=== PATIENT | male | born 1965 | race Hispanic/Latino ===

== ENCOUNTER 2017-11-09 21:57 | Inpatient (IN) | payer MEDICAID, OTHER ==
--- NOTE | 2017-11-09 22:26 | ED PDOC ---
Arrival/HPI <Pawan Mendes - Last Filed: 11/10/17 00:12> - General Historian: Patient - History of Present Illness Time/Duration: Other (see hpi) Context: Home <Genesis Dalal - Last Filed: 11/10/17 01:10> - General Chief Complaint: Weakness/Neurological Deficit Time Seen by Provider: 11/09/17 22:06 - History of Present Illness Narrative History of Present Illness (Text): 11/09/17 22:26 This 52 yo male with a pmh MS, presents to this ED by BLS c/o unable to walk, since he can not move his legs. Patient stated he normally uses a cane to ambulate. He stated he was a a local bar, having some beers. He satted he tried to stand up, but he said he can not move his legs. Patient feels it is an exacerbation of MS. Patient denies recent trauma, back pain, fever, sick contact, IV drug use, or dizziness. No PMD (Genesis Dalal) Past Medical History - Provider Review Nursing Documentation Reviewed: Yes - Infectious Disease Hx of Infectious Diseases: None - Tetanus Immunization Tetanus Immunization: Unknown - Cardiac Hx Cardiac Disorders: No - Pulmonary Hx Respiratory Disorders: No - Neurological Hx Neurological Disorder: Yes Hx Multiple Sclerosis: Yes - HEENT Hx HEENT Disorder: No - Renal Hx Renal Disorder: No - Endocrine/Metabolic Hx Endocrine Disorders: No - Hematological/Oncological Hx Blood Disorders: No - Integumentary Hx Dermatological Disorder: No - Musculoskeletal/Rheumatological Hx Musculoskeletal Disorders: No - Gastrointestinal Hx Gastrointestinal Disorders: No - Genitourinary/Gynecological Hx Genitourinary Disorders: No - Psychiatric Hx Psychophysiologic Disorder: Yes Hx Anxiety: Yes Hx Panic Disorder: Yes Hx Substance Use: No - Past Surgical History Past Surgical History: No Previous - Anesthesia Hx Anesthesia: No - Suicidal Assessment Feels Threatened In Home Enviroment: No <Genesis Dalal - Last Filed: 11/10/17 01:10> Family/Social History - Physician Review Nursing Documentation Reviewed: Yes Family/Social History: Other (noncontributory) Smoking Status: Former Smoker Hx Alcohol Use: No Hx Substance Use: No Hx Substance Use Treatment: No <Genesis Dalal - Last Filed: 11/10/17 01:10> Allergies/Home Meds <CinthyaPawan - Last Filed: 11/10/17 00:12> <Genesis Dalal - Last Filed: 11/10/17 01:10> Allergies/Adverse Reactions: Allergies No Known Allergies Allergy (Verified 03/09/15 21:20) Home Medications: Home Meds Medication Instructions Recorded Confirmed Clonazepam [Clonazepam] 1 mg PO BID 03/09/15 03/09/15 Gabapentin [Neurontin] 1 tab PO BID 03/09/15 03/09/15 PARoxetine [Paxil] 1 tab PO HS 03/09/15 03/09/15 hydrOXYzine HCl [Atarax] 1 tab PO DAILY 03/09/15 03/09/15 Review of Systems - Review of Systems Systems not reviewed;Unavailable: Intoxicated (mild) Constitutional: Normal. absent: Fatigue, Weight Change, Fevers Eyes: Normal ENT: Normal Respiratory: Normal. absent: SOB, Cough Cardiovascular: Normal. absent: Chest Pain Gastrointestinal: Normal. absent: Abdominal Pain, Nausea, Vomiting Genitourinary Male: Normal Musculoskeletal: Other (see hpi) Skin: Normal Neurological: Normal Endocrine: Normal Hemo/Lymphatic: Normal Psychiatric: Normal <Genesis Dalal Froylan - Last Filed: 11/10/17 01:10> Physical Exam - Physical Exam Physical Exam Limitations: Intoxication (but patient is able to answer all questions) Temperature: Afebrile Blood Pressure: Normal Pulse: Regular Respiratory Rate: Normal Appearance: Positive for: Well-Appearing, Non-Toxic, Comfortable Pain Distress: None Mental Status: Positive for: Alert and Oriented X 3 Finger Stick Blood Glucose: 107 - Systems Exam Head: Present: Atraumatic, Normocephalic Pupils: Present: PERRL Extroacular Muscles: Present: EOMI Conjunctiva: Present: Normal Mouth: Present: Moist Mucous Membranes Neck: Present: Normal Range of Motion Respiratory/Chest: Present: Clear to Auscultation, Good Air Exchange. No: Respiratory Distress, Accessory Muscle Use Cardiovascular: Present: Regular Rate and Rhythm, Normal S1, S2. No: Murmurs Abdomen: Present: Normal Bowel Sounds. No: Tenderness, Distention, Peritoneal Signs Back: Present: Normal Inspection Upper Extremity: Present: Normal Inspection, Normal ROM, Neurovascularly Intact , Capillary Refill < 2s. No: Cyanosis, Edema Lower Extremity: Present: Normal Inspection, Swelling. No: Edema, Normal ROM, Erythema, Temperature Abnormalties Neurological: Present: GCS=15, CN II-XII Intact, Speech Normal Skin: Present: Warm, Dry, Normal Color. No: Rashes Psychiatric: Present: Alert, Oriented x 3, Normal Insight, Normal Concentration <Genesis Dalal - Last Filed: 11/10/17 01:10> Vital Signs Temp Pulse Resp BP Pulse Ox 11/10/17 00:22 74 19 132/83 99 11/09/17 22:12 97.7 F 70 18 129/84 98 Medical Decision Making <Pawan Mendes - Last Filed: 11/10/17 00:12> Re-evaluation Time: 00:58 Reassessment Condition: Re-examined, Improving,but remains with symptoms - Lab Interpretations I have reviewed the lab results: Yes Interpretation: No clinic. lab abnormalty - EKG Interpretation Interpreted by ED Physician: Yes (NSR @ [address] changes) Type: 12 lead EKG Comparison: No previous EKG avail. <Genesis Dalal - Last Filed: 11/10/17 01:10> ED Course and Treatment: 11/09/17 23:[address] Adan Neurologist, regarding patient c/o unable to move his b/l legs. She recommended Solumedrol 125 mg IVP if there is not leukocytosis. She also recommended DVT prophylaxis, and MRI of Lumbar spine with contrast tomorrow morning. To place a consult under Dr. Manuel., who will see patient tomorrow. She also noted that patient will eventually need MRI of brain, cervical and Thoracic spine. 11/10/17 01:00 Patient stated he was seen Dr. Balderrama 2 years ago, but he has not seen him since then 11/10/17 01:08 I spoke with medical secretary teacher and Dr. Ann regarding patient c/o unable to move b/l legs. I reviewed labs, cxr, pending UA, and Dr. Adan neurologist recommendation. He agrees with plan for admission. (Genesis Dalal) - Lab Interpretations Lab Results: 11/09/17 22:55 11/09/17 22:55 Lab Results 11/09/17 22:55: Alcohol, Quantitative 228 H 11/09/17 22:55: Sodium 137, Potassium 3.7, Chloride 97 L, Carbon Dioxide 27, Anion Gap 17, BUN 7, Creatinine 0.6 L, Est GFR ( Amer) > 60, Est GFR (Non -Af Amer) > 60, Random Glucose 132 H, Calcium 9.0, Total Bilirubin 0.4, AST 26, ALT 36, Alkaline Phosphatase 70, Total Protein 7.6, Albumin 4.3, Globulin 3.3, Albumin/Globulin Ratio 1.3, Lipase 177 11/09/17 22:55: WBC 3.6 L D, RBC 4.67, Hgb 14.6, Hct 41.9 L, MCV 89.7, MCH 31.3 , MCHC 34.8, RDW 12.6, Plt Count 210, MPV 10.3, Gran % 42.6 L, Lymph % (Auto) 44.1 H, [place] % (Auto) 9.3 H, Eos % (Auto) 3.7, Baso % (Auto) 0.3, Gran # 1.52, Lymph # 1.6, [place] # 0.3, Eos # 0.1, Baso # 0.01 - RAD Interpretation Narrative RAD Interpretations (Text): 11/10/17 00:35 CXR: NAD (Genesis Dalal) Radiology Orders: 11/09/17 22:28 CHEST PORTABLE [RAD] Stat - Medication Orders Current Medication Orders: Discontinued Medications Multivitamins/Vitamin C 10 ml/Thiamine HCl 100 mg/ Folic Acid 1 mg/ Sodium Chloride 1,011.2 mls @ 500 mls/hr IV .Q2H2M ONE Stop: 11/10/17 00:28 Last Admin: 11/09/17 23:27 Dose: 500 mls/hr eMAR Start Stop Document 11/09/17 23:27 CNR (Rec: 11/09/17 23:27 CNR [id number]) Intravenous Solution Start Date 11/09/17 Start Time 23:27 Methylprednisolone (Solu-Medrol) 125 mg IVP STAT STA Stop: 11/10/17 00:58 - PA / 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 DILAN has examined the patient and agrees with the treatment plan. <Pawan Mendes - Last Filed: 11/10/17 00:12> Disposition/Present on Arrival <Pawan Mendes - Last Filed: 11/10/17 00:12> - Present on Arrival Any Indicators Present on Arrival: No History of DVT/PE: No History of Uncontrolled Diabetes: No Urinary Catheter: No History of Decub. Ulcer: No History Surgical Site Infection Following: None - Disposition Have Diagnosis and Disposition been Completed?: Yes Disposition Time: 01:06 Patient Plan: Admission <Genesis Dalal - Last Filed: 11/10/17 01:10> - Disposition Diagnosis: Exacerbation of multiple sclerosis Disposition: HOSPITALIZED Condition: STABLE Referrals: Mason Grimm MD [Primary Care Provider] - Follow up with primary Forms: [employer] ([place])
[2017-11-09] MEDS ORDERED: Multivitamin (MVI) 10 ML, Thiamine 100 MG, Folic Acid 1 MG in Sodium Chloride 0.9% 1,00... IV ONE (22:27)
[2017-11-09 23:28] LABS: ALB/GLOB RATIO 1.3 (1.1-1.8); ALBUMIN 4.3 g/dL (3.0-4.8); ALT/SGPT 36 U/L (7-56); AST/SGOT 26 U/L (17-59); BLOOD UREA NITROGEN 7 mg/dL (7-21); GFR AFRICAN-AMERICAN > 60; GFR NON-AFRICAN AMERICAN > 60; LIPASE 177 U/L (23-300)
[2017-11-09 23:53] LABS: WHITE BLOOD COUNT 3.6 10^3/ul (4.5-11.0)
[2017-11-09 23:54] LABS: HEMOGLOBIN 14.6 g/dL (14.0-18.0); MEAN CELL VOLUME 89.7 fl (80.0-105.0); MEAN CORPUSCULAR HEMOGLOBIN 31.3 pg (25.0-35.0); MEAN CORPUSCULAR HGB CONC 34.8 g/dl (31.0-37.0); MEAN PLATELET VOLUME 10.3 fl (7.0-11.0); RBC 4.67 10^6/uL (3.5-6.1); RED CELL DISTRIBUTION WIDTH 12.6 % (11.5-14.5)
[2017-11-09 23:55] LABS: BASO # 0.01 K/mm3 (0.0-2.0); BASO % 0.3 % (0.0-3.0); EOS # 0.1 (0.0-0.7); EOS % 3.7 % (1.5-5.0); GRAN # 1.52 (1.4-6.5); GRAN % 42.6 % (50.0-68.0); LYMPH # 1.6 (1.2-3.4); LYMPH % 44.1 % (22.0-35.0); MONO # 0.3 (0.1-0.6); MONO % 9.3 % (1.0-6.0)
--- NOTE | 2017-11-10 00:58 | CP.PCM.HP ---
<Anthony Philippe - Last Filed: 11/10/17 01:51> History of Present Illness - History of Present Illness History of Present Illness: CC: Increased Difficulty Ambulating Subjective: HPI: Patient is a 52 year old male with past medical history of multiple sclerosis, lumbar disk herniation, and anxiety disorder who presents to the emergency department for evaluation and treatment of increased difficulty ambulating. Patients states that at his baseline he unable to ambulate without the assistance of a walker. Additionally at baseline he has to assist his legs with the use of his arms to climb stairs. After consuming the 6-8 pints of beer over the course of several hours the patient states he was experiencing increased difficulty transitioning from a sitting to standing position. Patient also admits to baseline urinary and fecal incontinence. Patient denies intractable headache, fever, chills, dizziness, blurry vision, ringing in the ears, chest pain, shortness of breath, abdominal pain, nausea, vomiting, diarrhea, constipation, and urinary symptoms. ROS: 12 point review of systems negative except as indicated in HPI PMHx: MS, lumbar disk herniation, anxiety disorder PSHx: right ankle surgery, left ankle surgery, left elbow surgery, left wrist surgery Allergies: none Family Hx: none Social Hx: social ETOH use, former tobacco user- quit 6 months ago, smoked 3/4 ppd for 30 years, denies illicit drug use Medications: Please see medication reconciliation PMD: Dr. Grimm Pharmacy: [facility] in [place], also uses a specialty pharmacy to attain MS injection treatment- he cannot recall the name at this time Physical Examination: - Constitutional Appears: Non-toxic, No Acute Distress - Head Exam Head Exam: atraumatic, normocephalic - Eye Exam Eye Exam: Normal appearance, PERRL. absent: Scleral icterus - ENT Exam ENT Exam: Mucous Membranes Moist - Neck Exam Neck exam: Normal Inspection - Respiratory Exam Respiratory Exam: Normal Breathing Pattern - Cardiovascular Exam Cardiovascular Exam: +S1, +S2. absent: Gallop, JVD - GI/Abdominal Exam GI & Abdominal Exam: Normal Bowel Sounds, absent: Distended, Guarding, Pulsatile Mass, Rebound, Rigid - Extremities Exam Extremities exam: Negative for: calf tenderness - Neurological Exam Neurological exam: Patient is awake, alert, responds to verbal stimuli, answers questions appropriately, follows commands, and Upper Extremities 5/5 muscle strength bilaterally, Lower Extremities 2/5 muscle strength bilaterally, sensation intact to touch - Psychiatric Exam Psychiatric exam: Normal Affect, Normal Mood - Skin Skin Exam: warm and dry Assessment and Plan: Patient is a 52 year old male with past medical history of multiple sclerosis, lumbar disk herniation, and anxiety disorder who presents to the emergency department for evaluation and treatment of increased difficulty ambulating. Increased Difficulty Ambulating - ETOH vs MS exacerbation - high risk fall precautions - neurology consulted Dr. Manuel- appreciate recommendations, patient given loading dose of solumedrol in ED - consider MRI spine with contrast and continued steroids pending neurology recs - PT eval and treatment MS - patient does not have medication list to confirm, will contact family to acquire - states he takes one injection every 6 months to control MS symptoms - states he takes 2 muscle relaxers daily to help control symptoms - please restart home medications once confirmed ETOH Use - alcohol level 228 - folate, thiamine, multivitamin - ciwa protocol - mag level - seizure precautions - ativan 1mg prn withdrawl sxs Anxiety Disorder - states he takes clonazepam at home- unaware of dosage - please confirm home meds and restart - ativan prn Prophylaxis - DVT ppx- subq heparin - GI ppx- famotidine Patient case discussed with and plan approved by attending physician. 11/10/17 00:57 Present on Admission - Present on Admission Any Indicators Present on Admission: No Past Patient History - Infectious Disease Hx of Infectious Diseases: None - Tetanus Immunizations Tetanus Immunization: Unknown - Past Social History Smoking Status: Former Smoker - CARDIAC Hx Cardiac Disorders: No - PULMONARY Hx Respiratory Disorders: No - NEUROLOGICAL Hx Neurological Disorder: Yes Hx Multiple Sclerosis: Yes - HEENT Hx HEENT Problems: No - RENAL Hx Chronic Kidney Disease: No - ENDOCRINE/METABOLIC Hx Endocrine Disorders: No - HEMATOLOGICAL/ONCOLOGICAL Hx Blood Disorders: No - INTEGUMENTARY Hx Dermatological Problems: No - MUSCULOSKELETAL/RHEUMATOLOGICAL Hx Musculoskeletal Disorders: No - GASTROINTESTINAL Hx Gastrointestinal Disorders: No - GENITOURINARY/GYNECOLOGICAL Hx Genitourinary Disorders: No - PSYCHIATRIC Hx Psychophysiologic Disorder: Yes Hx Anxiety: Yes Hx Panic Symptoms: Yes Hx Substance Use: No - ANESTHESIA Hx Anesthesia: No Meds Allergies/Adverse Reactions: Allergies Allergy/AdvReac Type Severity Reaction Status Date / Time No Known Allergies Allergy Verified 03/09/15 21:20 Results - Vital Signs Recent Vital Signs: Last Vital Signs Temp 97.7 F 11/09/17 22:12 Pulse 74 11/10/17 00:22 Resp 19 11/10/17 00:22 BP 132/83 11/10/17 00:22 Pulse Ox 99 11/10/17 00:22 - Labs Result Diagrams: 11/09/17 22:55 11/09/17 22:55 Labs: Laboratory Results - last 24 hr 11/09/17 11/09/17 11/09/17 22:55 22:55 22:55 WBC 3.6 L D RBC 4.67 Hgb 14.6 Hct 41.9 L MCV 89.7 MCH 31.3 MCHC 34.8 RDW 12.6 Plt Count 210 MPV 10.3 Gran % 42.6 L Lymph % (Auto) 44.1 H [place] % (Auto) 9.3 H Eos % (Auto) 3.7 Baso % (Auto) 0.3 Gran # 1.52 Lymph # 1.6 [place] # 0.3 Eos # 0.1 Baso # 0.01 Sodium 137 Potassium 3.7 Chloride 97 L Carbon Dioxide 27 Anion Gap 17 BUN 7 Creatinine 0.6 L Est GFR ( Amer) > 60 Est GFR (Non-Af Amer) > 60 Random Glucose 132 H Calcium 9.0 Total Bilirubin 0.4 AST 26 ALT 36 Alkaline Phosphatase 70 Total Protein 7.6 Albumin 4.3 Globulin 3.3 Albumin/Globulin Ratio 1.3 Lipase 177 Alcohol, Quantitative 228 H <Nehemiah Ann - Last Filed: 11/10/17 04:51> Results - Vital Signs Recent Vital Signs: Last Vital Signs Temp 97.7 F 11/09/17 22:12 Pulse 78 11/10/17 02:37 Resp 11/10/17 02:37 BP 113/66 11/10/17 02:37 Pulse Ox 97 11/10/17 02:37 - Labs Result Diagrams: 11/09/17 22:55 11/09/17 22:55 Labs: Laboratory Results - last 24 hr 11/10/17 01:35 Urine Color Yellow Urine Appearance Clear Urine pH 6.0 Ur Specific [place] <= 1.005 Urine Protein Negative Urine Glucose (UA) Negative Urine Ketones Negative Urine Blood Negative Urine Nitrate Negative Urine Bilirubin Negative Urine Urobilinogen 0.2 Ur Leukocyte Esterase Negative Attending/Attestation - Attestation I have personally seen and examined this patient.: Yes I have fully participated in the care of the patient.: Yes I have reviewed all pertinent clinical information: Yes Notes (Text): 11/10/17 04:50 Patient was seen when he was in bed # 8 in the ER. Agree with history , physical examination, assessment and plan. Gives history of tonsillectomy, right shoulder rotator cuff repair, smoking, panic disorder.
[2017-11-10 01:58] LABS: URINE BILIRUBIN NEGATIVE (NEGATIVE); URINE BLOOD NEGATIVE (NEGATIVE); URINE GLUCOSE (UA) NEGATIVE (NEGATIVE); URINE LEUKOCYTE ESTERASE NEGATIVE Leu/uL (NEGATIVE); URINE NITRATE NEGATIVE (NEGATIVE); URINE PROTEIN NEGATIVE mg/dL (<30 mg/dL); URINE UROBILINOGEN 0.2 E.U./dL (<1 E.U./dL)
[2017-11-10 02:01] LABS: URINE APPEARANCE CLEAR (CLEAR); URINE COLOR YELLOW (YELLOW)
[2017-11-10 05:56] LABS: EOS % 0.3 % (1.5-5.0); GRAN # 2.47 (1.4-6.5); GRAN % 81.3 % (50.0-68.0); HEMOGLOBIN 15.3 g/dL (14.0-18.0); LYMPH # 0.5 (1.2-3.4); LYMPH % 17.1 % (22.0-35.0); MEAN CELL VOLUME 89.3 fl (80.0-105.0); MEAN CORPUSCULAR HGB CONC 34.7 g/dl (31.0-37.0); MEAN PLATELET VOLUME 10.5 fl (7.0-11.0); MONO % 1.3 % (1.0-6.0); RBC 4.94 10^6/uL (3.5-6.1); RED CELL DISTRIBUTION WIDTH 12.7 % (11.5-14.5)
[2017-11-10 06:42] LABS: ALB/GLOB RATIO 1.2 (1.1-1.8); ALBUMIN 4.5 g/dL (3.0-4.8); ALT/SGPT 38 U/L (7-56); AST/SGOT 24 U/L (17-59); BLOOD UREA NITROGEN 6 mg/dL (7-21); CALCIUM 9.6 mg/dL (8.4-10.5); GFR AFRICAN-AMERICAN > 60; GFR NON-AFRICAN AMERICAN > 60
[2017-11-10] MEDS: Multivitamin Therapeutic Tab PO SCH (09:04)
--- NOTE | 2017-11-10 09:05 | RAD ---
HISTORY: admission COMPARISON: No prior. FINDINGS: LUNGS: The lungs are well inflated and clear. PLEURA: No significant pleural effusion identified, no pneumothorax apparent. CARDIOVASCULAR: Normal. OSSEOUS STRUCTURES: No significant abnormalities. VISUALIZED UPPER ABDOMEN: Normal. OTHER FINDINGS: None. IMPRESSION: No active pulmonary disease.
[2017-11-10] MEDS ORDERED: methylPREDNISolone 1 GM in Sodium Chloride 0.9% 250 ML IV SCH (10:00)
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
--- NOTE | 2017-11-10 12:21 | CT ---
PROCEDURE: CT Lumbar Spine without contrast HISTORY: ms COMPARISON: None. TECHNIQUE: Axial computed tomography images were obtained of the lumbar spine without the use of intravenous contrast. Coronal and sagittal reformatted images were created and reviewed. Radiation dose: Total exam DLP = 1089 mGy-cm. This CT exam was performed using one or more of the following dose reduction techniques: Automated exposure control, adjustment of the mA and/or kV according to patient size, and/or use of iterative reconstruction technique. FINDINGS: VERTEBRAE: Unremarkable. No fracture. Normal alignment. DISCS/SPINAL CANAL/NEURAL FORAMINA: L1-2: Unremarkable. L2-3: Unremarkable. L3-4: Unremarkable. L4-5: Unremarkable. L5-S1: Unremarkable. PARASPINAL SOFT TISSUES: Unremarkable. OTHER FINDINGS: None. IMPRESSION: Unremarkable CT of Lumbar Spine.
--- NOTE | 2017-11-10 12:32 | CT ---
PROCEDURE: CT Thoracic Spine without contrast HISTORY: ms COMPARISON: None. TECHNIQUE: Axial computed tomography images were obtained of the thoracic spine without intravenous contrast. Coronal and sagittal reformatted images were created and reviewed. Radiation dose: Total exam DLP = 1119 mGy-cm. This CT exam was performed using one or more of the following dose reduction techniques: Automated exposure control, adjustment of the mA and/or kV according to patient size, and/or use of iterative reconstruction technique. FINDINGS: VERTEBRAE: Unremarkable. No fracture. Normal alignment. DISCS/SPINAL CANAL/NEURAL FORAMINA: Within the limits of the CT technique, no disc herniation seen. No central canal or neural foraminal stenosis.. PARASPINAL SOFT TISSUES: Unremarkable. OTHER FINDINGS: Degenerative changes are seen at the base of the ribs bilaterally at T10. CT is not sensitive to the detection of demyelinating disease in the cord. MRI would be more appropriate IMPRESSION: Unremarkable CT of the thoracic spine.
[2017-11-10 14:07] VITALS: BMI 30.5
[2017-11-10] MEDS ORDERED: Influenza Vaccine 60 mcg/0.5 mL SYR (4YR UP) IM ONE (14:08)
[2017-11-10] MEDS ORDERED: Pneumococcal 23-Valent Vaccine IM ONE (14:08)
--- NOTE | 2017-11-10 16:47 | CARD ---
APPROVED REPORT EKG Measurement Heart [id number] <Conclusion> Normal sinus rhythm Normal ECG
[2017-11-11 07:50] LABS: BASO # 0.01 K/mm3 (0.0-2.0); BASO % 0.2 % (0.0-3.0); EOS % 0.8 % (1.5-5.0); GRAN # 2.23 (1.4-6.5); HEMOGLOBIN 14.3 g/dL (14.0-18.0); LYMPH % 39.5 % (22.0-35.0); MEAN CELL VOLUME 90.1 fl (80.0-105.0); MEAN CORPUSCULAR HEMOGLOBIN 31.4 pg (25.0-35.0); MEAN CORPUSCULAR HGB CONC 34.9 g/dl (31.0-37.0); MEAN PLATELET VOLUME 10.3 fl (7.0-11.0); MONO # 0.7 (0.1-0.6); MONO % 14.5 % (1.0-6.0); RBC 4.55 10^6/uL (3.5-6.1); RED CELL DISTRIBUTION WIDTH 12.6 % (11.5-14.5)
[2017-11-11 08:22] LABS: ALB/GLOB RATIO 1.2 (1.1-1.8); ALT/SGPT 32 U/L (7-56); AST/SGOT 22 U/L (17-59); BLOOD UREA NITROGEN 12 mg/dL (7-21); CALCIUM 9.5 mg/dL (8.4-10.5); GFR AFRICAN-AMERICAN > 60; GFR NON-AFRICAN AMERICAN > 60
--- NOTE | 2017-11-11 09:13 | CP.PCM.PN ---
<Kylah Jha - Last Filed: 11/11/17 09:09> Subjective - Date & Time of Evaluation Date of Evaluation: 11/11/17 Time of Evaluation: 09:10 - Subjective Subjective: Neurology PGY2 for Dr. Briggs Pt states that no more leg cramps and stiffness in legs has improved. Last bowel movement was Friday. Denies fever and chills. No other acute complaints Objective - Vital Signs/Intake and Output Vital Signs (last 24 hours): Temp Pulse Resp BP Pulse Ox 97.8 F 73 18 122/91 H 97 11/11/17 06:00 11/11/17 06:00 11/11/17 06:00 11/11/17 06:00 11/11/17 06:00 Intake and Output: 11/11/17 11/11/17 06:59 18:59 Intake Total 120 Balance 120 - Medications Medications: Current Medications Baclofen (Lioresal) 30 mg PO HS [facility] Last Admin: 11/10/17 23:35 Dose: 30 mg Baclofen (Lioresal) 20 mg PO BID PRN PRN Reason: Muscle spasm Clonazepam (Klonopin) 1 mg PO BID PRN PRN Reason: Anxiety Last Admin: 11/10/17 21:47 Dose: 1 mg Famotidine (Pepcid) 40 mg PO HS [facility] Last Admin: 11/10/17 21:47 Dose: 40 mg Folic Acid (Folic Acid) 1 mg PO DAILY [facility] Last Admin: 11/10/17 09:05 Dose: 1 mg Gabapentin (Neurontin) 300 mg PO BID [facility] PRN Reason: Protocol Last Admin: 11/10/17 17:33 Dose: 300 mg Heparin Sodium (Porcine) (Heparin) 5,000 units SC Q8 [facility] PRN Reason: Protocol Last Admin: 11/11/17 05:25 Dose: 5,000 units Lorazepam (Ativan) 1 mg IVP Q6H PRN; Protocol PRN Reason: Symptoms of alcohol withdrawl Last Admin: 11/10/17 17:31 Dose: 1 mg Multivitamins (Thera Tab) 1 tab PO 0800 [facility] Last Admin: 11/10/17 09:04 Dose: 1 tab Paroxetine HCl (Paxil) 40 mg PO HS [facility] Last Admin: 11/10/17 21:46 Dose: 40 mg Thiamine HCl (Vitamin B1 Tab) 100 mg PO DAILY [facility] Last Admin: 11/10/17 09:04 Dose: 100 mg - Labs Labs: 11/11/17 07:00 11/11/17 07:00 - Constitutional Appears: No Acute Distress - Head Exam Head Exam: ATRAUMATIC, NORMAL INSPECTION, NORMOCEPHALIC - Eye Exam Eye Exam: EOMI, Normal appearance, PERRL. absent: Scleral icterus Pupil Exam: NORMAL ACCOMODATION - ENT Exam ENT Exam: Mucous Membranes Moist Additional comments: supple - Neck Exam Additional comments: supple - Respiratory Exam Respiratory Exam: Clear to Ausculation Bilateral, NORMAL BREATHING PATTERN. absent: Rales, Rhonchi, Wheezes - Cardiovascular Exam Cardiovascular Exam: REGULAR RHYTHM, +S1, +S2. absent: Murmur - GI/Abdominal Exam GI & Abdominal Exam: Soft, Normal Bowel Sounds. absent: Tenderness - Extremities Exam Extremities Exam: Normal Capillary Refill. absent: Calf Tenderness, Pedal Edema Additional comments: On SCDs - Neurological Exam Neurological Exam: Alert, Awake, CN II-XII Intact, Oriented x3 Neuro motor strength exam: Left Upper Extremity: 5, Right Upper Extremity: 5, Left Lower Extremity: 5, Right Lower Extremity: 5 Additional comments: Speech - fluent Sensory - grossly intact all 4 extremities Motor - 5/5 all extremities. stiffness improves Reflex - hyperreflexia on b/l LE Rapid alternative movement: [id number] intact - Psychiatric Exam Psychiatric exam: Normal Affect, Normal Mood - Skin Skin Exam: Dry, Warm Assessment and Plan - Assessment and Plan (Free Text) Plan: Mr Hernandez, 52M, with PMH of multiple sclerosis (used to be on weekly AVONEX ( interferon beta-1a) but started OCREVUS (ocrelizumab)q6mo 2 months ago), lumbar disk herniation, and anxiety disorder who presents to the emergency department for evaluation and treatment of increased difficulty ambulating. His R knee was "locked" with occasional leg spasm and leg tremor. Progressive type MS, flair - s/p 1 dose Methylprednisolone 125mg x 1 - Pending MRI w/wo gadolium - brain, C/T spine to compare MS plaques - Continue current MS medication, Ocrevus q6 months - Pt is immunocompromise due to ocrevus therapy. WBC 5. - Baclofen 30 HS for spasm. Baclofen 20 BID as needed during the day - Gabapentin 300 PO BID for neuropathy - Clonazepam 1mg BID for anxiety - recommend Subacute rehab s/r/d/w Dr. Briggs <Levon Briggs - Last Filed: 11/11/17 09:50> Objective - Vital Signs/Intake and Output Vital Signs (last 24 hours): Temp Pulse Resp BP Pulse Ox 97.8 F 73 18 122/91 H 97 11/11/17 06:00 11/11/17 06:00 11/11/17 06:00 11/11/17 06:00 11/11/17 06:00 Intake and Output: 11/11/17 11/11/17 06:59 18:59 Intake Total 120 Balance 120 - Medications Medications: Current Medications Baclofen (Lioresal) 30 mg PO HS [facility] Last Admin: 11/10/17 23:35 Dose: 30 mg Baclofen (Lioresal) 20 mg PO BID PRN PRN Reason: Muscle spasm Clonazepam (Klonopin) 1 mg PO BID PRN PRN Reason: Anxiety Last Admin: 11/10/17 21:47 Dose: 1 mg Famotidine (Pepcid) 40 mg PO HS [facility] Last Admin: 11/10/17 21:47 Dose: 40 mg Folic Acid (Folic Acid) 1 mg PO DAILY [facility] Last Admin: 11/10/17 09:05 Dose: 1 mg Gabapentin (Neurontin) 300 mg PO BID [facility] PRN Reason: Protocol Last Admin: 11/10/17 17:33 Dose: 300 mg Heparin Sodium (Porcine) (Heparin) 5,000 units SC Q8 [facility] PRN Reason: Protocol Last Admin: 11/11/17 05:25 Dose: 5,000 units Lorazepam (Ativan) 1 mg IVP Q6H PRN; Protocol PRN Reason: Symptoms of alcohol withdrawl Last Admin: 11/10/17 17:31 Dose: 1 mg Multivitamins (Thera Tab) 1 tab PO 0800 [facility] Last Admin: 11/10/17 09:04 Dose: 1 tab Paroxetine HCl (Paxil) 40 mg PO HS [facility] Last Admin: 11/10/17 21:46 Dose: 40 mg Thiamine HCl (Vitamin B1 Tab) 100 mg PO DAILY [facility] Last Admin: 11/10/17 09:04 Dose: 100 mg - Labs Labs: 11/11/17 07:00 11/11/17 07:00 Attending/Attestation - Attestation I have personally seen and examined this patient.: Yes I have fully participated in the care of the patient.: Yes I have reviewed all pertinent clinical information, including history, physical exam and plan: Yes
[2017-11-11] MEDS: Multivitamin Therapeutic Tab PO SCH (10:56)
--- NOTE | 2017-11-11 14:01 | MRI ---
PROCEDURE: MR THORACIC SPINE WITHOUT CONTRAST HISTORY: MS plaques or structure abn COMPARISON: None available. TECHNIQUE: Multiecho multiplanar sequences were performed through the thoracic spine without the use of intravenous contrast. FINDINGS: ALIGNMENT: Normal thoracic spinal alignment. Normal thoracic kyphosis. VERTEBRA: Vertebral body height are preserved. MARROW: Marrow signal unremarkable. PARASPINAL SOFT TISSUES: Unremarkable. CORD: Cord lesions are seen at the T5 and T12 levels on series 8, image 8. Lesions are difficult to see on other pulse sequences. Findings are consistent with demyelinating disease. There is also a lesion in the cord at the T3 level. DISCS: No disc herniation, spinal canal stenosis, or neuroforaminal narrowing. OTHER FINDINGS: None. IMPRESSION: Cord lesions at T3, T5 and T12 consistent with demyelinating disease.
--- NOTE | 2017-11-11 18:41 | CP.PCM.PN ---
<Abdulaziz Cooper - Last Filed: 11/11/17 18:37> Subjective - Date & Time of Evaluation Date of Evaluation: 11/11/17 Time of Evaluation: 07:30 - Subjective Subjective: Abdulaziz Cooper DO PGY1 - Internal Medicine Progres Note Patient seen and examined at bedside. No events reported overnight. Today, patient reports some improvement in muscle cramps and leg rigidity. He denies any new focal weakness, numbness. He denies urinary or bowel incontinence. Remainder of 12 point ROS negative. Objective - Vital Signs/Intake and Output Vital Signs (last 24 hours): Temp Pulse Resp BP Pulse Ox 97.8 F 73 18 122/91 H 97 11/11/17 06:00 11/11/17 06:00 11/11/17 06:00 11/11/17 06:00 11/11/17 06:00 Intake and Output: 11/11/17 11/11/17 06:59 18:59 Intake Total 120 420 Output Total 200 Balance 120 220 - Medications Medications: Current Medications Baclofen (Lioresal) 30 mg PO [facility] Last Admin: 11/10/17 23:35 Dose: 30 mg Baclofen (Lioresal) 20 mg PO BID PRN PRN Reason: Muscle spasm Clonazepam (Klonopin) 1 mg PO BID [facility] Last Admin: 11/11/17 17:19 Dose: 1 mg Famotidine (Pepcid) 40 mg PO [facility] Last Admin: 11/10/17 21:47 Dose: 40 mg Folic Acid (Folic Acid) 1 mg PO DAILY [facility] Last Admin: 11/11/17 10:55 Dose: 1 mg Gabapentin (Neurontin) 300 mg PO BID [facility] PRN Reason: Protocol Last Admin: 11/11/17 17:19 Dose: 300 mg Heparin Sodium (Porcine) (Heparin) 5,000 units SC Q8 [facility] PRN Reason: Protocol Last Admin: 11/11/17 14:53 Dose: 5,000 units Lorazepam (Ativan) 1 mg IVP Q6H PRN; Protocol PRN Reason: Symptoms of alcohol withdrawl Last Admin: 11/10/17 17:31 Dose: 1 mg Multivitamins (Thera Tab) 1 tab PO 0800 [facility] Last Admin: 11/11/17 10:56 Dose: 1 tab Paroxetine HCl (Paxil) 40 mg PO [facility] Last Admin: 11/10/17 21:46 Dose: 40 mg Thiamine HCl (Vitamin B1 Tab) 100 mg PO DAILY [facility] Last Admin: 11/11/17 10:55 Dose: 100 mg - Labs Labs: 11/11/17 07:00 11/11/17 07:00 - Constitutional Appears: Non-toxic, No Acute Distress - Head Exam Head Exam: ATRAUMATIC, NORMOCEPHALIC - Eye Exam Eye Exam: EOMI, Normal appearance, PERRL - ENT Exam ENT Exam: Mucous Membranes Moist - Respiratory Exam Respiratory Exam: Clear to Ausculation Bilateral, NORMAL BREATHING PATTERN - Cardiovascular Exam Cardiovascular Exam: REGULAR RHYTHM, +S1, +S2 - GI/Abdominal Exam GI & Abdominal Exam: Soft, Normal Bowel Sounds. absent: Tenderness - Extremities Exam Extremities Exam: absent: Calf Tenderness, Pedal Edema Additional comments: ROM in b/l LE improved since yesterday. Decreased spasticity - Neurological Exam Neurological Exam: Alert, Awake, Oriented x3 - Psychiatric Exam Psychiatric exam: Normal Affect, Normal Mood - Skin Skin Exam: Dry, Intact, Normal Color Assessment and Plan - Assessment and Plan (Free Text) Assessment: 52 year old male with past medical history of multiple sclerosis, lumbar disk herniation, and anxiety disorder who presents to the emergency department for evaluation and treatment of increased difficulty ambulating. Increased Difficulty Ambulating - Likely 2/2 Progressive MS vs MS flare; less likely 2/2 alcohol ingestion/ intoxication - Significant leg spasticity noted yesterday, improved today with initial conservative treatment - MRI brain/C spine/T spine ordered to r/o MS flare, pending - If imaging shows signs of acute flare, will treat with high dose IV steroids - high risk fall precautions - neurology consulted Dr. Briggs, who is familiar with the patient on ambulatory basis - PT eval and treatment MS - Patient takes Ocrevus every six months - Patient takes baclofen and flexeril at home; started baclofen 30mg HS for spasm - Gabapentin 300 PO BID ETOH Use - alcohol level 228 on admission - continue folate, thiamine, multivitamin - ciwa protocol; scores have been low since admission - ativan 1mg prn withdrawl sxs; patient required only one dose since admission Anxiety Disorder - Continue home clonazepam - ativan prn as above Prophylaxis - DVT ppx- subq heparin - GI ppx- famotidine Patient seen, discussed, and reviewed with attending <Dimitris Jarquin - Last Filed: 11/12/17 16:38> Objective - Vital Signs/Intake and Output Vital Signs (last 24 hours): Temp Pulse Resp BP Pulse Ox 98.4 F 70 20 141/85 95 11/12/17 05:58 11/12/17 05:58 11/12/17 05:58 11/12/17 05:58 11/12/17 05:58 Intake and Output: 11/12/17 11/12/17 06:59 18:59 Intake Total 240 Output Total 900 Balance -660 - Medications Medications: Current Medications Baclofen (Lioresal) 30 mg PO HS [facility] Last Admin: 11/11/17 21:28 Dose: 30 mg Baclofen (Lioresal) 20 mg PO BID PRN PRN Reason: Muscle spasm Cholecalciferol (Vitamin D) 2,000 intlu PO BID [facility] Clonazepam (Klonopin) 1 mg PO BID [facility] Last Admin: 11/12/17 09:48 Dose: 1 mg Famotidine (Pepcid) 40 mg PO HS [facility] Last Admin: 11/11/17 21:29 Dose: 40 mg Folic Acid (Folic Acid) 1 mg PO DAILY [facility] Last Admin: 11/12/17 09:48 Dose: 1 mg Gabapentin (Neurontin) 300 mg PO BID [facility] PRN Reason: Protocol Last Admin: 11/12/17 09:48 Dose: 300 mg Heparin Sodium (Porcine) (Heparin) 5,000 units SC Q8 [facility] PRN Reason: Protocol Last Admin: 11/12/17 14:28 Dose: 5,000 units Lorazepam (Ativan) 1 mg IVP Q6H PRN; Protocol PRN Reason: Symptoms of alcohol withdrawl Last Admin: 11/12/17 14:26 Dose: 1 mg Multivitamins (Thera Tab) 1 tab PO 0800 [facility] Last Admin: 11/12/17 09:48 Dose: 1 tab Non-Formulary Medication (Alpha Lipoic Acid) 600 mg PO BID [facility] Paroxetine HCl (Paxil) 40 mg PO HS [facility] Last Admin: 11/11/17 21:29 Dose: 40 mg Thiamine HCl (Vitamin B1 Tab) 100 mg PO DAILY [facility] Last Admin: 11/12/17 09:48 Dose: 100 mg - Labs Labs: 11/12/17 06:00 11/12/17 06:00 Attending/Attestation - Attestation I have personally seen and examined this patient.: Yes I have fully participated in the care of the patient.: Yes I have reviewed all pertinent clinical information, including history, physical exam and plan: Yes Notes (Text): 11/12/17 16:34 Attending note ; Patient seen and examined with resident . Patient is a 52 year old male with past medical history of multiple sclerosis, lumbar disk herniation, and anxiety disorder who presents to the emergency department for evaluation and treatment of increased difficulty ambulating. Patient has significant spasticity of both lower extremities. Lumbar and thoracic CT is negative. MRI of the brain/cervical spine/thoracic spine and lumbar spine ordered. Neurology evaluation appreciated. Physical therapy evaluation requested. Possible discharge home with services versus subacute rehabilitation. Case discussed with manager rn case in detail. Upon discharge the patient will follow up with PMD Dr. Grimm. Patient has progressive MS. Getting treated with Ocrevus as outpatient. Needs close follow-up with neurology. Needs outpatient physical therapy. The diagnosis and follow-up plan discussed with patient in detail. 11/12/17 16:37 11/12/17 16:37
[2017-11-12 00:06] VITALS: RESP 20; O2SAT 95
[2017-11-12 06:46] LABS: BASO # 0.02 K/mm3 (0.0-2.0); BASO % 0.4 % (0.0-3.0); EOS # 0.1 (0.0-0.7); EOS % 2.6 % (1.5-5.0); GRAN # 2.18 (1.4-6.5); GRAN % 44.3 % (50.0-68.0); HEMOGLOBIN 14.9 g/dL (14.0-18.0); LYMPH # 2.1 (1.2-3.4); LYMPH % 42.6 % (22.0-35.0); MEAN CELL VOLUME 90.4 fl (80.0-105.0); MEAN CORPUSCULAR HEMOGLOBIN 31.2 pg (25.0-35.0); MEAN CORPUSCULAR HGB CONC 34.5 g/dl (31.0-37.0); MEAN PLATELET VOLUME 10.7 fl (7.0-11.0); MONO # 0.5 (0.1-0.6); MONO % 10.1 % (1.0-6.0); RBC 4.78 10^6/uL (3.5-6.1); RED CELL DISTRIBUTION WIDTH 12.6 % (11.5-14.5); WHITE BLOOD COUNT 4.9 10^3/ul (4.5-11.0)
[2017-11-12 07:05] LABS: ALB/GLOB RATIO 1.2 (1.1-1.8); ALT/SGPT 40 U/L (7-56); AST/SGOT 25 U/L (17-59); BLOOD UREA NITROGEN 11 mg/dL (7-21); CALCIUM 9.6 mg/dL (8.4-10.5); GFR AFRICAN-AMERICAN > 60; GFR NON-AFRICAN AMERICAN > 60
[2017-11-12] MEDS: Multivitamin Therapeutic Tab PO SCH (09:48)
[2017-11-12] MEDS ORDERED: Gadodiamide 287 MG/ML VIAL (20ML) IV ONE (15:21)
--- NOTE | 2017-11-12 16:21 | CP.PCM.PN ---
<Kylah Jha - Last Filed: 11/12/17 17:29> Subjective - Date & Time of Evaluation Date of Evaluation: 11/12/17 Time of Evaluation: 09:00 - Subjective Subjective: Neurology PGY-[address] Briggs Pt states that spasm is gone and able to move knee more freely. Objective - Vital Signs/Intake and Output Vital Signs (last 24 hours): Temp Pulse Resp BP Pulse Ox 98.4 F 70 20 141/85 95 11/12/17 05:58 11/12/17 05:58 11/12/17 05:58 11/12/17 05:58 11/12/17 05:58 Intake and Output: 11/12/17 11/12/17 06:59 18:59 Intake Total 240 Output Total 900 Balance -660 - Medications Medications: Current Medications Baclofen (Lioresal) 30 mg PO HS [facility] Last Admin: 11/11/17 21:28 Dose: 30 mg Baclofen (Lioresal) 20 mg PO BID PRN PRN Reason: Muscle spasm Cholecalciferol (Vitamin D) 2,000 intlu PO BID [facility] Clonazepam (Klonopin) 1 mg PO BID [facility] Last Admin: 11/12/17 09:48 Dose: 1 mg Famotidine (Pepcid) 40 mg PO HS [facility] Last Admin: 11/11/17 21:29 Dose: 40 mg Folic Acid (Folic Acid) 1 mg PO DAILY [facility] Last Admin: 11/12/17 09:48 Dose: 1 mg Gabapentin (Neurontin) 300 mg PO BID [facility] PRN Reason: Protocol Last Admin: 11/12/17 09:48 Dose: 300 mg Heparin Sodium (Porcine) (Heparin) 5,000 units SC Q8 [facility] PRN Reason: Protocol Last Admin: 11/12/17 14:28 Dose: 5,000 units Lorazepam (Ativan) 1 mg IVP Q6H PRN; Protocol PRN Reason: Symptoms of alcohol withdrawl Last Admin: 11/12/17 14:26 Dose: 1 mg Multivitamins (Thera Tab) 1 tab PO 0800 [facility] Last Admin: 11/12/17 09:48 Dose: 1 tab Non-Formulary Medication (Alpha Lipoic Acid) 600 mg PO BID [facility] Paroxetine HCl (Paxil) 40 mg PO HS [facility] Last Admin: 11/11/17 21:29 Dose: 40 mg Thiamine HCl (Vitamin B1 Tab) 100 mg PO DAILY [facility] Last Admin: 11/12/17 09:48 Dose: 100 mg - Labs Labs: 11/12/17 06:00 11/12/17 06:00 - Constitutional Appears: Well - Head Exam Head Exam: ATRAUMATIC, NORMAL INSPECTION, NORMOCEPHALIC - Eye Exam Eye Exam: EOMI, Normal appearance, PERRL Pupil Exam: NORMAL ACCOMODATION, PERRL - ENT Exam ENT Exam: Mucous Membranes Moist - Neck Exam Additional comments: supple - Respiratory Exam Respiratory Exam: Clear to Ausculation Bilateral, NORMAL BREATHING PATTERN. absent: Rales, Rhonchi, Wheezes - Cardiovascular Exam Cardiovascular Exam: REGULAR RHYTHM, +S1, +S2. absent: Murmur - GI/Abdominal Exam GI & Abdominal Exam: Soft, Normal Bowel Sounds. absent: Tenderness - Extremities Exam Extremities Exam: absent: Calf Tenderness - Neurological Exam Neurological Exam: Alert, Awake, CN II-XII Intact, Oriented x3 Additional comments: Speech - fluent Sensory - grossly intact all 4 extremities Motor - 5/5 all extremities. stiffness improves Reflex - hyperreflexia on b/l LE Rapid alternative movement: [id number] intact - Psychiatric Exam Psychiatric exam: Normal Affect, Normal Mood - Skin Skin Exam: Dry, Normal Color Assessment and Plan - Assessment and Plan (Free Text) Plan: Mr Hernandez, 52M, with PMH of multiple sclerosis (used to be on weekly AVONEX ( interferon beta-1a) but started OCREVUS (ocrelizumab)q6mo 2 months ago), lumbar disk herniation, and anxiety disorder who presents to the emergency department for evaluation and treatment of increased difficulty ambulating. His R knee was "locked" with occasional leg spasm and leg tremor. Progressive type MS, flair - Add vitamin D 4000 IU daily, alpha-lipoic acid 600mg BID. Thera-tab already has biotin - s/p 1 dose Methylprednisolone 125mg x 1 - MRI: white matter lesions R frontal, L occipital, L parietal, C4, C6, T3, T5, T12 with no enhancement - Continue current MS medication, Ocrevus q6 months - Pt is immunocompromise due to ocrevus therapy - Baclofen 30 HS for spasm. Baclofen 20 BID as needed during the day - Gabapentin 300 PO BID for neuropathy - Clonazepam 1mg BID for anxiety - recommend Subacute rehab - Physical therapy for gait training, strength, endurance, and balance s/r/d/w Dr. Briggs <Levon Briggs - Last Filed: 11/13/17 10:02> Objective - Vital Signs/Intake and Output Vital Signs (last 24 hours): Temp Pulse Resp BP Pulse Ox 97.9 F 90 20 150/94 H 95 11/12/17 18:04 11/12/17 18:04 11/12/17 18:04 11/12/17 18:04 11/12/17 05:58 - Labs Labs: 11/12/17 06:00 11/12/17 06:00 Attending/Attestation - Attestation I have personally seen and examined this patient.: Yes I have fully participated in the care of the patient.: Yes I have reviewed all pertinent clinical information, including history, physical exam and plan: Yes
--- NOTE | 2017-11-12 16:33 | MRI ---
PROCEDURE: MRI BRAIN WITH AND WITHOUT CONTRAST HISTORY: MS plaques or structure abn COMPARISON: None. TECHNIQUE: Multiplanar, multisequence MR images of the brain were obtained with and without intravenous contrast enhancement. 20 cc of Omniscan FINDINGS: HEMORRHAGE: None DWI: No evidence of an acute or early subacute infarction. BRAIN PARENCHYMA: No mass,mass effect or edema. Several white matter lesions are seen in both hemispheres. There is an 11 mm lesion seen in the frontal white matter adjacent to the right frontal horn. There is also a lesion adjacent to the left occipital horn. There is a 7 mm lesion in the left parietal white matter. Findings are consistent with demyelinating disease ENHANCEMENT: No abnormal intracranial enhancement. VENTRICLES: Unremarkable. No hydrocephalus. CRANIUM: Unremarkable. ORBITS: Grossly unremarkable. PARANASAL SINUSES/MASTOIDS: Clear VASCULAR SYSTEM: Skull base flow voids intact. OTHER FINDINGS: None . IMPRESSION: Demyelinating disease in the right frontal, left occipital and left parietal white matter.
--- NOTE | 2017-11-12 16:38 | MRI ---
PROCEDURE: MR CERVICAL SPINE WITH AND WITHOUT CONTRAST HISTORY: MS plaques or structure abn COMPARISON: None available. TECHNIQUE: Multiecho multiplanar sequences were performed through the cervical spine with and without the use of intravenous contrast. FINDINGS: Normal lordotic curvature. Craniocervical junction unremarkable. Vertebral body heights preserved. No marrow signal abnormality. Poorly defined cord lesions are seen on the sagittal fat-suppressed images at the C4 and C6 levels. No paraspinal abnormality. No abnormal enhancement C2-3: No disc herniation, spinal canal stenosis or neural foraminal narrowing. C3-4: No disc herniation, spinal canal stenosis or neural foraminal narrowing. C4-5: No disc herniation, spinal canal stenosis or neural foraminal narrowing. C5-C6: No disc herniation, spinal canal stenosis or neural foraminal narrowing. C6-C7: No disc herniation, spinal canal stenosis or neuroforaminal narrowing. C7-T1: No disc herniation, spinal canal stenosis or neural foraminal narrowing. OTHER FINDINGS: None. IMPRESSION: Demyelinating lesions at the C4 and C6 levels. There are no enhancing lesions
--- NOTE | 2017-11-12 16:43 | CP.PCM.PN ---
<Bin Cooperraphael - Last Filed: 11/12/17 16:37> Subjective - Date & Time of Evaluation Date of Evaluation: 11/12/17 Time of Evaluation: 07:30 - Subjective Subjective: Abdulaziz Cooper DO PGY1 - Internal Medicine Progress Note Patient seen and examined at bedside. No events reported overnight. Today, patient reports significant improvement in muscle cramps and leg rigidity, and that he is able to bend his knees freely. He feels as though his right leg is stronger than his left. He denies any new focal weakness, numbness. He denies urinary or bowel incontinence. Remainder of 12 point ROS negative. Objective - Vital Signs/Intake and Output Vital Signs (last 24 hours): Temp Pulse Resp BP Pulse Ox 98.4 F 70 20 141/85 95 11/12/17 05:58 11/12/17 05:58 11/12/17 05:58 11/12/17 05:58 11/12/17 05:58 Intake and Output: 11/12/17 11/12/17 06:59 18:59 Intake Total 240 Output Total 900 Balance -660 - Medications Medications: Current Medications Baclofen (Lioresal) 30 mg PO HS [facility] Last Admin: 11/11/17 21:28 Dose: 30 mg Baclofen (Lioresal) 20 mg PO BID PRN PRN Reason: Muscle spasm Cholecalciferol (Vitamin D) 2,000 intlu PO BID [facility] Clonazepam (Klonopin) 1 mg PO BID [facility] Last Admin: 11/12/17 09:48 Dose: 1 mg Famotidine (Pepcid) 40 mg PO HS [facility] Last Admin: 11/11/17 21:29 Dose: 40 mg Folic Acid (Folic Acid) 1 mg PO DAILY [facility] Last Admin: 11/12/17 09:48 Dose: 1 mg Gabapentin (Neurontin) 300 mg PO BID [facility] PRN Reason: Protocol Last Admin: 11/12/17 09:48 Dose: 300 mg Heparin Sodium (Porcine) (Heparin) 5,000 units SC Q8 [facility] PRN Reason: Protocol Last Admin: 11/12/17 14:28 Dose: 5,000 units Lorazepam (Ativan) 1 mg IVP Q6H PRN; Protocol PRN Reason: Symptoms of alcohol withdrawl Last Admin: 11/12/17 14:26 Dose: 1 mg Multivitamins (Thera Tab) 1 tab PO 0800 [facility] Last Admin: 11/12/17 09:48 Dose: 1 tab Non-Formulary Medication (Alpha Lipoic Acid) 600 mg PO BID [facility] Paroxetine HCl (Paxil) 40 mg PO HS [facility] Last Admin: 11/11/17 21:29 Dose: 40 mg Thiamine HCl (Vitamin B1 Tab) 100 mg PO DAILY [facility] Last Admin: 11/12/17 09:48 Dose: 100 mg - Labs Labs: 11/12/17 06:00 11/12/17 06:00 - Constitutional Appears: Non-toxic, No Acute Distress - Head Exam Head Exam: ATRAUMATIC, NORMOCEPHALIC - Eye Exam Eye Exam: EOMI, Normal appearance, PERRL - ENT Exam ENT Exam: Mucous Membranes Moist - Neck Exam Neck Exam: Full ROM, Normal Inspection. absent: Meningismus - Respiratory Exam Respiratory Exam: Clear to Ausculation Bilateral, NORMAL BREATHING PATTERN - Cardiovascular Exam Cardiovascular Exam: REGULAR RHYTHM, +S1, +S2 - GI/Abdominal Exam GI & Abdominal Exam: Soft, Normal Bowel Sounds. absent: Tenderness - Extremities Exam Extremities Exam: absent: Calf Tenderness, Pedal Edema Additional comments: ROM in b/l LE improved since yesterday. Decreased spasticity - Neurological Exam Neurological Exam: Alert, Awake, Oriented x3 - Psychiatric Exam Psychiatric exam: Normal Affect, Normal Mood - Skin Skin Exam: Dry, Intact Assessment and Plan - Assessment and Plan (Free Text) Assessment: 52 year old male with past medical history of multiple sclerosis, lumbar disk herniation, and anxiety disorder who presents to the emergency department for evaluation and treatment of increased difficulty ambulating. Improving spasticity and rigidity Increased Difficulty Ambulating - Likely 2/2 Progressive MS vs MS flare; less likely 2/2 alcohol ingestion/ intoxication - Significant leg spasticity noted yesterday, continually improving - MRI T spine complete yesterday, shows plaques without enhancement - MRI brain/C spine ordered to r/o MS flare, pending - If imaging shows signs of acute flare, will treat with high dose IV steroids - High risk fall precautions - Neurology consulted: Dr. Briggs, who is familiar with the patient on ambulatory basis - PT eval and treatment; for consideration of DINESH vs HWS MS - Patient takes Ocrevus every six months - Patient takes baclofen and flexeril at home; started baclofen 30mg HS for spasm - Gabapentin 300 PO BID ETO[facility] Use - alcohol level 228 on admission - continue folate, thiamine, multivitamin - ciwa protocol; scores have been low since admission - ativan 1mg prn withdrawl sxs; patient required only one dose since admission Anxiety Disorder - Continue home clonazepam - ativan prn as above Prophylaxis - DVT ppx- subq heparin - GI ppx- famotidine Patient seen, discussed, and reviewed with attending <Dimitris Jarquin - Last Filed: 11/12/17 17:31> Objective - Vital Signs/Intake and Output Vital Signs (last 24 hours): Temp Pulse Resp BP Pulse Ox 98.4 F 70 20 141/85 95 11/12/17 05:58 11/12/17 05:58 11/12/17 05:58 11/12/17 05:58 11/12/17 05:58 Intake and Output: 11/12/17 11/12/17 06:59 18:59 Intake Total 240 Output Total 900 Balance -660 - Medications Medications: Current Medications Baclofen (Lioresal) 30 mg PO HS [facility] Last Admin: 11/11/17 21:28 Dose: 30 mg Baclofen (Lioresal) 20 mg PO BID PRN PRN Reason: Muscle spasm Cholecalciferol (Vitamin D) 2,000 intlu PO BID [facility] Clonazepam (Klonopin) 1 mg PO BID [facility] Last Admin: 11/12/17 09:48 Dose: 1 mg Famotidine (Pepcid) 40 mg PO HS [facility] Last Admin: 11/11/17 21:29 Dose: 40 mg Folic Acid (Folic Acid) 1 mg PO DAILY [facility] Last Admin: 11/12/17 09:48 Dose: 1 mg Gabapentin (Neurontin) 300 mg PO BID [facility] PRN Reason: Protocol Last Admin: 11/12/17 09:48 Dose: 300 mg Heparin Sodium (Porcine) (Heparin) 5,000 units SC Q8 [facility] PRN Reason: Protocol Last Admin: 11/12/17 14:28 Dose: 5,000 units Lorazepam (Ativan) 1 mg IVP Q6H PRN; Protocol PRN Reason: Symptoms of alcohol withdrawl Last Admin: 11/12/17 14:26 Dose: 1 mg Multivitamins (Thera Tab) 1 tab PO 0800 [facility] Last Admin: 11/12/17 09:48 Dose: 1 tab Non-Formulary Medication (Alpha Lipoic Acid) 600 mg PO BID [facility] Paroxetine HCl (Paxil) 40 mg PO HS [facility] Last Admin: 11/11/17 21:29 Dose: 40 mg Thiamine HCl (Vitamin B1 Tab) 100 mg PO DAILY [facility] Last Admin: 11/12/17 09:48 Dose: 100 mg - Labs Labs: 11/12/17 06:00 11/12/17 06:00 Attending/Attestation - Attestation I have personally seen and examined this patient.: Yes I have fully participated in the care of the patient.: Yes I have reviewed all pertinent clinical information, including history, physical exam and plan: Yes Notes (Text): 11/12/17 17:30 Attending note; Patient seen and examined with resident. Patient is a 52 year old male with past medical history of multiple sclerosis, lumbar disk herniation, and anxiety disorder who presents to the emergency department for evaluation and treatment of increased difficulty ambulating. Patient has significant spasticity of both lower extremities. Lumbar and thoracic CT is negative. MRI of the brain/cervical spine/thoracic spine and lumbar spine showed multiple demyelinating lesions in the brain and spine. Neurology evaluation appreciated. Physical therapy evaluation appreciated. Home with services versus scar recommended. We will follow up with neurology for further plan. Possible discharge home with services versus subacute rehabilitation. Case discussed with caser in detail. Upon discharge the patient will follow up with PMD Dr. Grimm.
[2017-11-12] MEDS ORDERED: Cholecalciferol 1,000 INTLU TAB PO SCH (18:00)
[2017-11-12] MEDS ORDERED: ALPHA LIPOIC ACID 600 MG PO SCH (18:00)
[2017-11-12 18:05] VITALS: BP 150/94; PULSE 90; TEMP 97.9
--- NOTE | 2017-11-13 21:15 | CP.PCM.DIS ---
Provider - Provider Date of Admission: 11/10/17 01:11 Attending physician: Dimitris Jarquin MD Primary care physician: Mason Grimm MD Consults: Neuro: Brigitte Time Spent in preparation of Discharge (in minutes): 45 Diagnosis - Discharge Diagnosis (1) Exacerbation of multiple sclerosis Status: Acute Hospital Course - Lab Results Lab Results: Most Recent Lab Values WBC 4.9 10^3/ul (4.5-11.0) 11/12/17 06:00 RBC 4.78 10^6/uL (3.5-6.1) 11/12/17 06:00 Hgb 14.9 g/dL (14.0-18.0) 11/12/17 06:00 Hct 43.2 % (42.0-52.0) 11/12/17 06:00 MCV 90.4 fl (80.0-105.0) 11/12/17 06:00 MCH 31.2 pg (25.0-35.0) 11/12/17 06:00 MCHC 34.5 g/dl (31.0-37.0) 11/12/17 06:00 RDW 12.6 % (11.5-14.5) 11/12/17 06:00 Plt Count 227 10^3/uL (120.0-450.0) 11/12/17 06:00 MPV 10.7 fl (7.0-11.0) 11/12/17 06:00 Gran % 44.3 % (50.0-68.0) L 11/12/17 06:00 Lymph % (Auto) 42.6 % (22.0-35.0) H 11/12/17 06:00 Hardee % (Auto) 10.1 % (1.0-6.0) H 11/12/17 06:00 Eos % (Auto) 2.6 % (1.5-5.0) 11/12/17 06:00 Baso % (Auto) 0.4 % (0.0-3.0) 11/12/17 06:00 Gran # 2.18 (1.4-6.5) 11/12/17 06:00 Lymph # 2.1 (1.2-3.4) 11/12/17 06:00 Hardee # 0.5 (0.1-0.6) 11/12/17 06:00 Eos # 0.1 (0.0-0.7) 11/12/17 06:00 Baso # 0.02 K/mm3 (0.0-2.0) 11/12/17 06:00 Sodium 140 mmol/L (132-148) 11/12/17 06:00 Potassium 3.9 mmol/L (3.6-5.0) 11/12/17 06:00 Chloride 102 mmol/L (98-107) 11/12/17 06:00 Carbon Dioxide 26 mmol/L (21-33) 11/12/17 06:00 Anion Gap 15 (10-20) 11/12/17 06:00 BUN 11 mg/dL (7-21) 11/12/17 06:00 Creatinine 0.7 mg/dl (0.8-1.5) L 11/12/17 06:00 Est GFR ( Amer) > 60 11/12/17 06:00 Est GFR (Non-Af Amer) > 60 11/12/17 06:00 Random Glucose 95 mg/dL (70-110) 11/12/17 06:00 Calcium 9.6 mg/dL (8.4-10.5) 11/12/17 06:00 Magnesium 2.3 mg/dL (1.7-2.2) H 11/09/17 22:55 Total Bilirubin 0.6 mg/dL (0.2-1.3) 11/12/17 06:00 AST 25 U/L (17-59) 11/12/17 06:00 ALT 40 U/L (7-56) 11/12/17 06:00 Alkaline Phosphatase 82 U/L (38-126) 11/12/17 06:00 Total Protein 7.3 g/dL (5.8-8.3) 11/12/17 06:00 Albumin 4.0 g/dL (3.0-4.8) 11/12/17 06:00 Globulin 3.3 gm/dL 11/12/17 06:00 Albumin/Globulin Ratio 1.2 (1.1-1.8) 11/12/17 06:00 Lipase 177 U/L (23-300) 11/09/17 22:55 Urine Color Yellow (YELLOW) 11/10/17 01:35 Urine Appearance Clear (CLEAR) 11/10/17 01:35 Urine pH 6.0 (4.7-8.0) 11/10/17 01:35 Ur Specific Narvon <= 1.005 (1.005-1.035) 11/10/17 01:35 Urine Protein Negative mg/dL (<30 mg/dL) 11/10/17 01:35 Urine Glucose (UA) Negative mg/dL (NEGATIVE) 11/10/17 01:35 Urine Ketones Negative mg/dL (NEGATIVE) 11/10/17 01:35 Urine Blood Negative (NEGATIVE) 11/10/17 01:35 Urine Nitrate Negative (NEGATIVE) 11/10/17 01:35 Urine Bilirubin Negative (NEGATIVE) 11/10/17 01:35 Urine Urobilinogen 0.2 E.U./dL (<1 E.U./dL) 11/10/17 01:35 Ur Leukocyte Esterase Negative Tomás/uL (NEGATIVE) 11/10/17 01:35 Alcohol, Quantitative 228 mg/dL (0-10) H 11/09/17 22:55 - Hospital Course Hospital Course: 52 yo M with history of anxiety, multiple sclerosis, and lumbar disk disease who initially presented to the hospital with difficulty with ambulation. On exam , he was noted to have bilateral lower extremity spasticity. 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 MRI's showed evidence of demylinating disease, without evidence of acute flare up. His symptoms improved with conservative management, and increased frequency of muscle relaxant dosing, Please see yesterday's progress note, on day of discharge, for most recent HPI and exam Discharge Exam - Head Exam Head Exam: ATRAUMATIC, NORMAL INSPECTION, NORMOCEPHALIC - Additional Findings Additional findings: Please see progress note from day of discharge for exam Discharge Plan - Follow Up Plan Condition: STABLE Disposition: HOME/ ROUTINE Instructions: Multiple Sclerosis (DC), Multiple Sclerosis (GEN) Additional Instructions: 1. Increase frquency of baclofen to three times daily, as instructed by Dr. Briggs 2. Follow up with physical therapy, either on outpatient basis or with home services 3. Follow up with your primary care doctor within one week 4. Continue to take all other medications as previously prescribed 5. For any new or worsening concerns, contact PCP immediately or return to ER Referrals: Levon Briggs MD [Staff Provider] - Mason Grimm MD [Primary Care Provider] -
== END 2017-11-12 19:30 | disposition home or self-care (01) | DRG 13 ==
LOC: ED 21:57 → ERH 11-10 01:11 → 2A 11-10 11:52
PROVIDERS: ADMIT Internal Medicine; ATTEND Internal Medicine
DX: G35 Multiple sclerosis (principal); G62.9 Polyneuropathy, unspecified; R32 Unspecified urinary incontinence; R15.9 Full incontinence of feces; Y90.7 Blood alcohol level of 200-239 mg/100 ml; F41.0 Panic disorder [episodic paroxysmal anxiety]; Z87.891 Personal history of nicotine dependence; F10.129 Alcohol abuse with intoxication, unspecified; R40.2412 Glasgow coma scale score 13-15, at arrival to emergency department; M51.26 Other intervertebral disc displacement, lumbar region

== ENCOUNTER 2018-07-18 19:08 | Inpatient (IN) | payer MEDICARE, OTHER ==
[2018-07-18 19:23] VITALS: BMI 30.8
[2018-07-18] MEDS ORDERED: Sodium Chloride 0.9% 500 ML IV STA (19:38)
[2018-07-18] MEDS ORDERED: Sodium Chloride 0.9% 1,000 ML IV STA (19:38)
[2018-07-18 20:04] LABS: HEMOGLOBIN 15.5 g/dL (14.0-18.0); MEAN CELL VOLUME 90.2 fl (80.0-105.0); MEAN CORPUSCULAR HEMOGLOBIN 31.1 pg (25.0-35.0); MEAN CORPUSCULAR HGB CONC 34.5 g/dl (31.0-37.0); MEAN PLATELET VOLUME 10.5 fl (7.0-11.0); RBC 4.98 10^6/uL (3.5-6.1); RED CELL DISTRIBUTION WIDTH 12.6 % (11.5-14.5); WHITE BLOOD COUNT 11.9 10^3/ul (4.5-11.0)
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
[2018-07-18] MEDS ORDERED: methylPREDNISolone 1 GM in Sodium Chloride 0.9% 250 ML IV ONE (20:30)
[2018-07-18 20:34] LABS: ALB/GLOB RATIO 1.3 (1.1-1.8); ALBUMIN 4.7 g/dL (3.0-4.8); ALT/SGPT 24 U/L (7-56); AST/SGOT 26 U/L (17-59); BLOOD UREA NITROGEN 11 mg/dL (7-21); GFR NON-AFRICAN AMERICAN > 60
[2018-07-18] MEDS ORDERED: Gadodiamide 287 MG/ML VIAL (15ML) IV ONE (21:18)
--- NOTE | 2018-07-19 01:07 | MRI ---
EXAM: MR Cervical Spine Without Intravenous Contrast CLINICAL HISTORY: 53 years old, male; Pain; Neck pain; Patient HX: HX ms; Additional info: Back pain HX. Ms, pt refused contrast for the exam pt refused further sequences no contrast injected TECHNIQUE: Magnetic resonance images of the cervical spine without intravenous contrast in multiple planes. COMPARISON: MR SPINAL CANAL CERVICAL W/WO PAOLO 11/12/2017 3:31 PM FINDINGS: Vertebrae: Anatomic alignment. Normal marrow signal. Interspaces: Mild disc dehydration throughout the cervical spine without significant disc space height loss. Spinal cord: Intact. Normal signal. Soft tissues: Normal. Vasculature: Intact. Normal vertebral artery flow voids are visualized. DISCS/SPINAL CANAL/NEURAL FORAMINA: C2-C3: Disc dehydration with minimal posterior disc protrusion. Bilateral bony neural foramina appear patent. No stenosis. C3-C4: Minimal disc dehydration and mild right lateral recess disc protrusion. No stenosis of the spinal canal or bony neural foramina. C4-C5: Mild disc dehydration. No disc space height loss. Mild bilateral bony neural foramina encroachment. No stenosis. C5-C6: Mild disc dehydration without disc space height loss. Mild encroachment of the bilateral bony neural foramina. No stenosis. C6-C7: Disc dehydration with small posterior disc ridge complex in the bilateral lateral recess. Significant right bony neural encroachment from uncovertebral joint spurring. Mild left bony neural foramina encroachment. No stenosis. C7-T1: Intact. No significant disc disease. No stenosis. IMPRESSION: 1. Significant right bony neuroforamen stenosis C6-C7 similar to previous exam. 2. Homogeneous signal within the spinal cord on this nonenhanced study.
--- NOTE | 2018-07-19 01:15 | MRI ---
EXAM: MR Thoracic Spine Without And With Intravenous Contrast CLINICAL HISTORY: 53 years old, male; Pain; Pain in thoracic spine; Other: Leg weakness; Patient HX: HX ms; Additional info: Back pain HX. Ms, pt refused contrast for the exam pt refused further sequences no contrast injected TECHNIQUE: Magnetic resonance images of the thoracic spine without and with intravenous contrast in multiple planes. COMPARISON: MR SPINAL CANAL THORACIC W/O CONT 11/11/2017 9:23 AM FINDINGS: Vertebrae: Intact. No acute fracture. Discs/spinal canal/neural foramina: No acute findings. No significant disc disease. No spinal canal stenosis. Spinal cord: Faint signal alterations within the spinal cord at T5 and T12 similar to the previous exam compatible with chronic demyelinating plaques. No abnormal enhancement. Soft tissues: Normal. IMPRESSION: Faint signal alterations within the spinal cord at T5 and T12 similar to the previous exam compatible with chronic demyelinating plaques. No new lesion seen within the cord on this nonenhanced MRI exam.
--- NOTE | 2018-07-19 01:33 | MRI ---
EXAM: MR Lumbar Spine without Intravenous Contrast CLINICAL HISTORY: 53 years old, male; Pain; Low back pain; Patient HX: HX ms; Additional info: Back pain, pt refused contrast for the exam pt refused further sequences no contrast injected TECHNIQUE: Magnetic resonance images of the lumbar spine without intravenous contrast in multiple planes. COMPARISON: CT LUMBAR SPINE W/O CONTRAST 11/10/2017 10:38 AM, MR - SPINAL CANAL THORACIC W/O CONT 11/11/2017 9:23:57 AM FINDINGS: Vertebrae: Lumbar spine is in anatomic alignment. Normal signal is seen with in the marrow of the vertebral bodies. Spinal cord: Small signal alteration at the T12 thoracic cord similar to her previous exam. Soft tissues: Normal. DISCS/SPINAL CANAL/NEURAL FORAMINA: L1-L2: Minimal disc dehydration. No stenosis spinal canal or the bilateral bony neural foramina. L2-L3: Mild disc dehydration. Small disc herniation in the left bony neural foramen exit zone with minimal nerve root impingement. Right bony neural foramina patent. No stenosis. L3-L4: Disc dehydration. No disc herniation Mild bilateral bony neuroforaminal encroachment slightly worse on the left side from small disc protrusion. Minimal fluid in the facet joint. No stenosis. L4-L5: Disc dehydration. No disc herniation. Moderate left bony neuroforaminal encroachment from left lateral disc protrusion and hypertrophic facet arthrosis. Right bony neural foramina patent. No stenosis. L5-S1: Disc dehydration. No stenosis spinal canal or bony neural foramina appear to IMPRESSION: 1. Chronic cord lesion at T12 similar to the previous exam. 2. Mild shift of disease with moderate left bony neuroforaminal encroachment at L2-L3 and L4-L5.
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
[2018-07-19 08:21] LABS: GRAN # 9.71 (1.4-6.5); HEMOGLOBIN 14.7 g/dL (14.0-18.0); LYMPH # 0.4 (1.2-3.4); LYMPH % 4.3 % (22.0-35.0); MEAN CELL VOLUME 89.4 fl (80.0-105.0); MEAN CORPUSCULAR HEMOGLOBIN 30.5 pg (25.0-35.0); MEAN CORPUSCULAR HGB CONC 34.1 g/dl (31.0-37.0); MEAN PLATELET VOLUME 10.8 fl (7.0-11.0); MONO # 0.1 (0.1-0.6); MONO % 0.7 % (1.0-6.0); PLATELET COUNT 189 10^3/uL (120.0-450.0); RBC 4.82 10^6/uL (3.5-6.1); RED CELL DISTRIBUTION WIDTH 12.3 % (11.5-14.5); WHITE BLOOD COUNT 10.2 10^3/ul (4.5-11.0)
[2018-07-19 08:42] LABS: ALB/GLOB RATIO 1.2 (1.1-1.8); ALT/SGPT 19 U/L (7-56); AST/SGOT 22 U/L (17-59); BLOOD UREA NITROGEN 14 mg/dL (7-21); CALCIUM 9.5 mg/dL (8.4-10.5); GFR NON-AFRICAN AMERICAN > 60
[2018-07-19] MEDS ORDERED: DALFAMPRIDINE 10 MG PO SCH (10:00)
[2018-07-19 10:27] LABS: LYMPHOCYTE 4 % (22.0-35.0); MONOCYTE 1 % (1.0-6.0); NEUTROPHIL 95 % (50.0-70.0); PLATELET ESTIMATE NORMAL (NORMAL)
[2018-07-19] MEDS: methylPREDNISolone 1 GM in Sodium Chloride 0.9% 250 ML IVPB SCH (12:01)
--- NOTE | 2018-07-19 14:14 | CON ---
DATE: 07/19/2018 HISTORY OF PRESENT ILLNESS: This is a 53-year-old man who is well known to me with a past medical history of chronic back pain, lumbar disk herniations, anxiety, history of multiple sclerosis, now on Ocrevus infusion every 6 months and will be due on 08/10/2018 for his next. Has fatigue, chronic back spasms. He came in to the hospital for increased difficulty in ambulating with lower extremity spasms and lower back spasms as well as lower extremity weakness. He is status post 2 rounds of IV Solu-Medrol, which has given him much better relief. He is able to lift up his legs now off the bed. He underwent an MRI of the cervical spine, which showed some right neuroforaminal stenosis at C7 multiple sclerosis. His thoracic MRI with and without contrast showed demyelinating plaques at T5 and T12 and no acute enhancement. MRI of the lumbosacral spine showed some left moderate neuroforaminal encroachment on L2-L3 - L4-L5. He is currently on gabapentin for neuropathic pain, baclofen for muscle spasm, Ampyra for ambulation. No acute events overnight. PAST MEDICAL HISTORY: As above. SOCIAL HISTORY: No illicit drug use, smoking or EtOH abuse. REVIEW OF SYSTEMS: Fourteen-point review of systems is negative except as per the HPI. FAMILY HISTORY: Noncontributory. ALLERGIES: NO KNOWN DRUG ALLERGIES. MEDICATIONS: Reviewed by nurses's reconciliation sheet. LABORATORY DATA: Sodium is 149, potassium 4, chloride 104, carbon dioxide 26, BUN of 14, creatinine 0.7, random glucose 171. PHYSICAL EXAMINATION: GENERAL: The patient is sitting up in bed, in no acute distress. HEENT: Atraumatic, normocephalic. PERRLA. Extraocular muscles intact. NECK: Supple. No JVD, no adenopathy noted. LUNGS: Clear to auscultation. No adventitious sounds. HEART: S1 and S2. Normal rate and rhythm. No murmurs, rubs or gallops. ABDOMEN: Soft, nontender and nondistended. Bowel sounds are present. EXTREMITIES: No clubbing. No cyanosis. Peripheral pulses 2+ felt bilaterally. NEUROLOGIC: The patient is alert and oriented to person, place and year. Recall after 5 minutes is 0/3. Poor attention span. Slow thought process. Cranial nerves II through XII intact. Motor exam: Moves all extremities equally except for bilateral lower extremity weakness, which is 4++/5 bilaterally consistent with MS exacerbation. Sensory exam: Light touch, pinprick, proprioception and vibration are intact. DTRs are 2+ throughout. Coordination: [id number] intact. Gait is deferred for now. IMPRESSION: This is a 53-year-old man with history of multiple sclerosis, chronic lumbar disk herniation and anxiety, who presented with bilateral lower extremity weakness and multiple lumbosacral back spasms and leg spasms, who was admitted for multiple sclerosis exacerbation, status post 2 rounds of 1 g IV Solu-Medrol, which he is feeling much better. We will recommend to give him 1 more gram of IV Solu-Medrol tomorrow on 07/20/2018 and PT/OT eval. Continue with gabapentin 300 mg p.o. at bedtime for neuropathic relief, baclofen 10 mg p.o. t.i.d. for back spasms as well as we will give him tramadol every 6 hours p.r.n. acute onset of pain. We will get an MRI of the brain with and without contrast. Thank you for this consult. Levon Briggs MD
[2018-07-19] MEDS ORDERED: Gadodiamide 287 MG/ML VIAL (15ML) IV ONE (17:25)
[2018-07-19] MEDS: DALFAMPRIDINE 10 MG PO SCH (18:19)
[2018-07-19 19:44] LABS: URINE BILIRUBIN NEGATIVE (NEGATIVE); URINE BLOOD TRACE-INTACT (NEGATIVE); URINE GLUCOSE (UA) >=1000 mg/dL (NEGATIVE); URINE LEUKOCYTE ESTERASE SMALL Leu/uL (NEGATIVE); URINE PROTEIN NEGATIVE mg/dL (<30 mg/dL); URINE UROBILINOGEN 0.2 E.U./dL (<1 E.U./dL)
[2018-07-19 19:46] LABS: URINE APPEARANCE CLEAR (CLEAR); URINE COLOR YELLOW (YELLOW)
[2018-07-19 20:53] LABS: BARBITURATES, UR NEGATIVE (NEGATIVE); BENZODIAZEPINES, UR NEGATIVE (NEGATIVE); OPIATES, UR NEGATIVE (NEGATIVE); PHENCYCLIDINE, UR NEGATIVE (NEGATIVE)
--- NOTE | 2018-07-20 07:06 | CP.PCM.PN ---
Subjective - Date & Time of Evaluation Date of Evaluation: 07/20/18 Time of Evaluation: 07:45 - Subjective Subjective: PGY-1 Anjali Becerra D.O. Medicine progress note for Dr. Philippe's service: Patient was seen and examined this morning. No over night events reported. Objective - Vital Signs/Intake and Output Vital Signs (last 24 hours): Temp Pulse Resp BP Pulse Ox 98.1 F 66 18 117/76 96 07/19/18 22:03 07/19/18 22:03 07/19/18 22:03 07/19/18 22:03 07/19/18 22:03 Intake and Output: 07/20/18 07/20/18 06:59 18:59 Intake Total 500 Output Total 1000 Balance -500 - Medications Medications: Current Medications Baclofen (Lioresal) 10 mg PO DAILY [facility] Last Admin: 07/19/18 10:27 Dose: 10 mg Clonazepam (Klonopin) 1 mg PO BID [facility] Last Admin: 07/19/18 18:26 Dose: 1 mg Famotidine (Pepcid) 40 mg PO HS [facility] Last Admin: 07/19/18 22:03 Dose: 40 mg Gabapentin (Neurontin) 300 mg PO DAILY [facility] PRN Reason: Protocol Last Admin: 07/19/18 10:27 Dose: 300 mg Heparin Sodium (Porcine) (Heparin) 5,000 units SC Q12 [facility] PRN Reason: Protocol Last Admin: 07/19/18 22:02 Dose: 5,000 units Home Med (Home Med) 10 unit PO BID [facility] Last Admin: 07/19/18 18:19 Dose: 10 unit Methylprednisolone 1 gm/ (Sodium Chloride) 250 mls @ 250 mls/hr IVPB DAILY [facility] Stop: 07/23/18 06:00 Last Admin: 07/19/18 12:01 Dose: 250 mls/hr Oxybutynin Chloride (Ditropan Tab) 5 mg PO TID [facility] Last Admin: 07/19/18 18:25 Dose: 5 mg Tramadol HCl (Ultram) 50 mg PO TID [facility] Last Admin: 07/19/18 18:25 Dose: 50 mg - Labs Labs: 07/19/18 07:30 07/19/18 07:30 Assessment and Plan - Assessment and Plan (Free Text) Assessment: This is a 53 year old male with PMH of multiple sclerosis, chronic back pain, lumbar disc herniation, and anxiety presenting to the ED for lower extremity weakness that began on Friday night. Patient will be admitted for multiple sclerosis exacerbation. Awaiting neurology recommendations. Plan: Progressive type MS, flair -neurology on consult, Dr. Deshawn Briggs -s/p 1 gram methylprednisone in ED last night at approx 9pm -lumbar MRI spine showed chronic cord lesion at T12 similar to previous and mild shift of disease with moderate left bony neuroforaminal enroachment at L2- L3/L4-L5 -thoracic MRI spine showed chronic demyelinating plaques at T5 and T12 -cervical MRI spine showed significant right body neuroforamen stenosis C6-7 similar to previous and homogeneous signal withing the spinal cord -UDS, U/A pending -continue gabapentin, baclofen and ampyra -P.T. eval -fall risk precautions -consider MRI brain, awaiting neurology recommendations Chronic back pain -continue baclofen for spasms Anxiety -continue clonazepam IVF: Diet: GI ppx: VTE ppx: Code status: full code Case discussed with attending, Dr. Philippe.
[2018-07-20 07:23] LABS: GRAN # 11.59 (1.4-6.5); GRAN % 93.2 % (50.0-68.0); HEMOGLOBIN 14.2 g/dL (14.0-18.0); LYMPH # 0.5 (1.2-3.4); LYMPH % 3.7 % (22.0-35.0); MEAN CELL VOLUME 89.5 fl (80.0-105.0); MEAN CORPUSCULAR HEMOGLOBIN 31.2 pg (25.0-35.0); MEAN CORPUSCULAR HGB CONC 34.9 g/dl (31.0-37.0); MEAN PLATELET VOLUME 10.8 fl (7.0-11.0); MONO # 0.4 (0.1-0.6); MONO % 3.1 % (1.0-6.0); RBC 4.55 10^6/uL (3.5-6.1); RED CELL DISTRIBUTION WIDTH 12.5 % (11.5-14.5); WHITE BLOOD COUNT 12.4 10^3/ul (4.5-11.0)
[2018-07-20 07:58] LABS: ALB/GLOB RATIO 1.2 (1.1-1.8); ALBUMIN 4.1 g/dL (3.0-4.8); ALT/SGPT 20 U/L (7-56); AST/SGOT 20 U/L (17-59); BLOOD UREA NITROGEN 16 mg/dL (7-21); CALCIUM 9.5 mg/dL (8.4-10.5); GFR NON-AFRICAN AMERICAN > 60
[2018-07-20 09:55] VITALS: O2SAT 97
--- NOTE | 2018-07-20 10:05 | MRI ---
Date of service: 07/19/2018 PROCEDURE: MRI BRAIN WITH AND WITHOUT CONTRAST HISTORY: ms exacebation COMPARISON: Comparison made with prior MRI brain 11/12/2017. TECHNIQUE: Multiplanar, multisequence MR images of the brain were obtained with and without intravenous contrast enhancement. FINDINGS: HEMORRHAGE: Acute parenchymal, subarachnoid or extra-axial hemorrhage. No evidence of hemosiderin deposition identified on gradient echo weighted sequence. DWI: No evidence of an acute or early subacute infarction seen on diffusion imaging.. BRAIN PARENCHYMA: Re-demonstrated are few nonenhancing round/elliptical shaped prolonged T2 signal changes scattered about the periventricular the common deep and subcortical white matter both cerebral hemispheres. Changes most likely represent sequela of volume a demyelinating disease process consistent with this patient's history of MS none of the lesions exhibit obvious contrast enhancement to suggest active demyelination at this time. Few of the lesions in the right frontal white matter appear new since prior exam. Mild generalized volume loss ENHANCEMENT: No abnormal intracranial enhancement. No evidence of unusual meningeal enhancement. VENTRICLES: No obstructive hydrocephalus. CRANIUM: Unremarkable. ORBITS: Orbits and contents grossly unremarkable. PARANASAL SINUSES/MASTOIDS: Mucosal thickening noted within multiple ethmoid air cells extending superiorly into the inferior margin of the frontal sinus. VASCULAR SYSTEM: Visualized major vascular flow voids at skull base patent. OTHER FINDINGS: None . IMPRESSION: Re-demonstrated are few nonenhancing round/elliptical shaped prolonged T2 signal changes scattered about the periventricular the common deep and subcortical white matter both cerebral hemispheres. Changes most likely represent sequela of volume a demyelinating disease process consistent with this patient's history of MS none of the lesions exhibit obvious contrast enhancement to suggest active demyelination at this time. Few of the lesions in the right frontal white matter appear new since prior exam. Mild generalized volume loss
[2018-07-20] MEDS: methylPREDNISolone 1 GM in Sodium Chloride 0.9% 250 ML IVPB SCH (10:12)
[2018-07-20] MEDS: DALFAMPRIDINE 10 MG PO SCH ×2 (10:14→17:13)
[2018-07-20] MEDS ORDERED: cefTRIAXone 1 gm 1 GM/100 ML BAG IVPB ONE (12:56)
--- NOTE | 2018-07-20 14:09 | PN ---
Copied To: Levon Briggs MD Attending MD: Levon Briggs MD DATE: 07/20/2018 NEUROLOGY FOLLOWUP CHIEF COMPLAINT: Followup for MS exacerbation. SUBJECTIVE: The patient is doing much better. He is seen at bed, able to lift up his legs, status post 3 days of IV Solu-Medrol. His MRI of the brain did show some chronic demyelinating lesions scattered throughout the cerebral hemispheres as well as his MRI of C-spine and T-spine. PAST MEDICAL HISTORY: History of chronic back pain, lumbar disk; anxiety; multiple sclerosis. SOCIAL HISTORY: No illicit drug use or EtOH abuse. REVIEW OF SYSTEMS: Fourteen-point review of systems is negative except as per the HPI. ALLERGIES: NO KNOWN DRUG ALLERGIES. MEDICATIONS: Reviewed by nurse per reconciliation sheet. FAMILY HISTORY: Noncontributory. LABORATORY DATA: Sodium is 139, potassium 4.7, chloride 104, carbon dioxide 26. BUN of 16, creatinine 0.7. Random glucose 157. He has a mild UTI. PHYSICAL EXAMINATION: VITAL SIGNS: Temperature 98.4, pulse rate 78, blood pressure 142/88, respiratory rate of 18, oxygen saturation 97% by room air. GENERAL: The patient is sitting up in bed, in no acute distress. HEENT: Atraumatic and normocephalic. PERRLA. Extraocular muscles intact. NECK: Supple. No JVD, no adenopathy noted. LUNGS: Clear to auscultation. No adventitious sounds. HEART: S1, S2. Normal rate and rhythm. No murmurs, rubs or gallops. ABDOMEN: Soft, nontender, nondistended. Bowel sounds are present. EXTREMITIES: No clubbing. No cyanosis. Peripheral pulses 2+ felt bilaterally. NEUROLOGIC: The patient is alert and oriented to person, place, and year. Recall after 5 minutes is 0/3. Poor attention span. Slow thought process. Cranial nerves II through XII intact. Motor exam: Moves all extremities equally except for bilateral lower extremity weakness, which is , which is consistent with MS. Sensory exam: Light touch, pinprick, proprioception, and vibration are intact. DTRs are 2+ throughout, brisk at the knees. Coordination: [id number]-jy-[id number] intact. Gait is deferred for now. IMPRESSION: This is a 53-year-old man with history of multiple sclerosis, chronic lumbar disk herniation and anxiety, who presented with bilateral lower extremity weakness and some lower extremity back spasms who was admitted for multiple sclerosis exacerbation, status post day 3 of 1 g IV Solu-Medrol, he is feeling much better. PT/OT nomi. Will recommend to follow up as an outpatient and will need some outpatient physical therapy and recommend a 4-wheel walker and continue to follow up for , which is his disease modifying therapy for MS, which will get infused every 6 months. Continue with baclofen 10 mg p.o. t.i.d. and p.r.n. tramadol for acute onset of pain. Thank you for this followup. Levon Briggs MD
[2018-07-20 15:48] VITALS: BP 135/79; PULSE 72; RESP 20; TEMP 98.3
--- NOTE | 2018-07-20 16:35 | CP.PCM.DIS ---
Provider - Provider Date of Admission: 07/19/18 01:42 Attending physician: Dimitris Jarquin MD Primary care physician: Mason Grimm MD Consults: neurology Time Spent in preparation of Discharge (in minutes): 45 Diagnosis - Discharge Diagnosis (1) Exacerbation of multiple sclerosis Status: Acute Priority: High Hospital Course - Lab Results Lab Results: Micro Results 07/19/18 07:00 Blood Blood Culture - Preliminary NO GROWTH AFTER 24 HOURS 07/19/18 07:00 Blood Blood Culture - Preliminary NO GROWTH AFTER 24 HOURS Most Recent Lab Values WBC 12.4 10^3/ul (4.5-11.0) H D 07/20/18 06:30 RBC 4.55 10^6/uL (3.5-6.1) 07/20/18 06:30 Hgb 14.2 g/dL (14.0-18.0) 07/20/18 06:30 Hct 40.7 % (42.0-52.0) L 07/20/18 06:30 MCV 89.5 fl (80.0-105.0) 07/20/18 06:30 MCH 31.2 pg (25.0-35.0) 07/20/18 06:30 MCHC 34.9 g/dl (31.0-37.0) 07/20/18 06:30 RDW 12.5 % (11.5-14.5) 07/20/18 06:30 Plt Count 202 10^3/uL (120.0-450.0) 07/20/18 06:30 MPV 10.8 fl (7.0-11.0) 07/20/18 06:30 Gran % 93.2 % (50.0-68.0) H 07/20/18 06:30 Lymph % (Auto) 3.7 % (22.0-35.0) L 07/20/18 06:30 [place] % (Auto) 3.1 % (1.0-6.0) 07/20/18 06:30 Eos % (Auto) 0.0 % (1.5-5.0) L 07/20/18 06:30 Baso % (Auto) 0.0 % (0.0-3.0) 07/20/18 06:30 Gran # 11.59 (1.4-6.5) H 07/20/18 06:30 Lymph # (Auto) 0.5 (1.2-3.4) L 07/20/18 06:30 [place] # (Auto) 0.4 (0.1-0.6) 07/20/18 06:30 Eos # (Auto) 0.0 (0.0-0.7) 07/20/18 06:30 Baso # (Auto) 0.00 K/mm3 (0.0-2.0) 07/20/18 06:30 Neutrophils % (Manual) 95 % (50.0-70.0) H 07/19/18 07:30 Lymphocytes % (Manual) 4 % (22.0-35.0) L 07/19/18 07:30 Monocytes % (Manual) 1 % (1.0-6.0) 07/19/18 07:30 Platelet Evaluation Normal (NORMAL) 07/19/18 07:30 Sodium 139 mmol/L (132-148) 07/20/18 06:30 Potassium 4.7 mmol/L (3.6-5.0) 07/20/18 06:30 Chloride 104 mmol/L (98-107) 07/20/18 06:30 Carbon Dioxide 26 mmol/L (21-33) 07/20/18 06:30 Anion Gap 14 (10-20) 07/20/18 06:30 BUN 16 mg/dL (7-21) 07/20/18 06:30 Creatinine 0.7 mg/dl (0.8-1.5) L 07/20/18 06:30 Est GFR ( Amer) > 60 07/20/18 06:30 Est GFR (Non-Af Amer) > 60 07/20/18 06:30 Random Glucose 157 mg/dL (70-110) H 07/20/18 06:30 Calcium 9.5 mg/dL (8.4-10.5) 07/20/18 06:30 Total Bilirubin 0.4 mg/dL (0.2-1.3) 07/20/18 06:30 AST 20 U/L (17-59) 07/20/18 06:30 ALT 20 U/L (7-56) 07/20/18 06:30 Alkaline Phosphatase 71 U/L (38-126) 07/20/18 06:30 Total Protein 7.3 g/dL (5.8-8.3) 07/20/18 06:30 Albumin 4.1 g/dL (3.0-4.8) 07/20/18 06:30 Globulin 3.3 gm/dL 07/20/18 06:30 Albumin/Globulin Ratio 1.2 (1.1-1.8) 07/20/18 06:30 Procalcitonin 0.11 NG/ML (0.19-0.49) L 07/19/18 08:30 Urine Color Yellow (YELLOW) 07/19/18 19:00 Urine Appearance Clear (CLEAR) 07/19/18 19:00 Urine pH 6.0 (4.7-8.0) 07/19/18 19:00 Ur Specific [place] 1.010 (1.005-1.035) 07/19/18 19:00 Urine Protein Negative mg/dL (<30 mg/dL) 07/19/18 19:00 Urine Glucose (UA) >=1000 mg/dL (NEGATIVE) 07/19/18 19:00 Urine Ketones Negative mg/dL (NEGATIVE) 07/19/18 19:00 Urine Blood Trace-intact (NEGATIVE) H 07/19/18 19:00 Urine Nitrate Positive (NEGATIVE) H 07/19/18 19:00 Urine Bilirubin Negative (NEGATIVE) 07/19/18 19:00 Urine Urobilinogen 0.2 E.U./dL (<1 E.U./dL) 07/19/18 19:00 Ur Leukocyte Esterase Small Tomás/uL (NEGATIVE) H 07/19/18 19:00 Urine RBC 5 - 10 /hpf (0-2) 07/19/18 19:00 Urine WBC 5 - 10 /hpf (0-6) 07/19/18 19:00 Ur Epithelial Cells 10 - 12 /hpf (0-5) 07/19/18 19:00 Urine Opiates Screen Negative (NEGATIVE) 07/19/18 19:00 Urine Methadone Screen Negative (NEGATIVE) 07/19/18 19:00 Ur Barbiturates Screen Negative (NEGATIVE) 07/19/18 19:00 Ur Phencyclidine Scrn Negative (NEGATIVE) 07/19/18 19:00 Ur Amphetamines Screen Negative (NEGATIVE) 07/19/18 19:00 U Benzodiazepines Scrn Negative (NEGATIVE) 07/19/18 19:00 U Oth Cocaine Metabols Negative (NEGATIVE) 07/19/18 19:00 U Cannabinoids Screen Negative (NEGATIVE) 07/19/18 19:00 - Hospital Course Hospital Course: This is a 53 year old male with PMH of multiple sclerosis, chronic back pain, lumbar disc herniation, and anxiety presenting to the ED for lower extremity weakness that began on Friday night. Patient states he was at home laying down and tried to get up but was unable to because of the weakness. He denies fall, head trauma or LOC. He admits to previous similar episode that occurred 9 months ago in October for which he was hospitalized and given steroids with improvement. He admits to being compliant with his medications. His multiple sclerosis meds include ampyra daily and ocrevus injection every 6 months with the next dose on August 10. He currently admits to chronic back pain, inability to tolerate heat and B/L lower leg weakness. He denies CP, SOB, headaches, vision changes and blurry vision, abdominal pain, fevers, nausea, vomiting, chills, urinary complaints, urinary incontinence, stool incontinence, hematochezia, hematuria, numbness, tingling, swelling, recent travel and recent sickness. 12 point ROS noted here, otherwise unremarkable. In the ED, patient given 1 gram of methylprednisone, 1.5 L of NS, ketolorac and ativan. MRI of cervical, thoracic and lumbar are pending final read. Neurology was consulted. Patient sees Dr. Briggs as outpatient. Patient received 3 doses of Solumedrol 1g. Patient was continued on chronic meds for MS. Patient was incidentally found to have a UTI. Patient was asymptomatic regarding UTI/infection. Upon discharge, patient was accepted to [facility]. He was still experiencing LE weakness, but closer to his baseline than on admission. Patient mostly uses a scooter at home. He is able to ambulate with a walker while at his house. He denied significant pain. Vitals were stable. He was discharged with oral cipro- will follow-up culture and sensitivity when available. Discharge Exam - Head Exam Head Exam: ATRAUMATIC, NORMAL INSPECTION - Eye Exam Eye Exam: EOMI, Normal appearance - ENT Exam ENT Exam: Mucous Membranes Moist, Normal Exam - Neck Exam Neck exam: Normal Inspection - Respiratory Exam Respiratory Exam: Clear to PA & Lateral, NORMAL BREATHING PATTERN, UNREMARKABLE - Cardiovascular Exam Cardiovascular Exam: REGULAR RHYTHM, +S1, +S2 - GI/Abdominal Exam GI & Abdominal Exam: Normal Bowel Sounds, Soft, Unremarkable. absent: Tenderness - Rectal Exam Rectal Exam: Deferred - Extremities Exam Extremities exam: normal inspection, pedal pulses present - Back Exam Back exam: NORMAL INSPECTION, paraspinal tenderness - Neurological Exam Neurological exam: Alert, CN II-XII Intact, Oriented x3 Additional comments: Motor: LLE 1/5, RLE 2/5, UEs 5/5 b/l No sensory deficits - Psychiatric Exam Psychiatric exam: Normal Affect, Normal Mood - Skin Skin Exam: Dry, Intact, Normal Color, Warm Discharge Plan - Follow Up Plan Condition: STABLE Disposition: REHAB FACILITY/REHAB UNIT Patient education suggested?: Yes Instructions: Multiple Sclerosis, Adult (DC) Additional Instructions: You are being discharged from [facility] after being treated for a multiple sclerosis exacerbation. You will be transferred to [facility] for further rehabilitation. Please continue all medications as prescribed. You will be given a prescription for Cipro 250 mg- take twice daily for a total of 5 days for possible urinary tract infection. Please follow-up with your primary care physician, Dr. Grimm, within 3-5 days of discharge from rehab. Please follow-up with your neurologist, Dr. Briggs, within 3-5 days of discharge from rehab. Referrals: Levon Briggs MD [Staff Provider] - Mason Grimm MD [Primary Care Provider] -
== END 2018-07-20 23:42 | DRG 59 ==
LOC: ED 19:08 → ERH 07-19 01:42 → 5RSO 07-19 04:02
PROVIDERS: ADMIT Internal Medicine; ATTEND Hospitalist
DX: G35 Multiple sclerosis (principal); N39.0 Urinary tract infection, site not specified; M51.26 Other intervertebral disc displacement, lumbar region; M48.02 Spinal stenosis, cervical region; F41.0 Panic disorder [episodic paroxysmal anxiety]; G89.29 Other chronic pain; F12.90 Cannabis use, unspecified, uncomplicated; F41.9 Anxiety disorder, unspecified; Z87.891 Personal history of nicotine dependence